=== PATIENT | male | born 1940 | race Caucasian/White ===

== ENCOUNTER 2018-08-25 13:57 | Emergency (ER) | payer MEDICARE, OTHER ==
[~2018-08-25] VITALS: Wt 71.0 kg
[~2018-08-25 13:57] MED LIST: AMLO2.5T78 PO; ATOR40TA68 PO; CEPH-443 PO; CLOP75TA27 PO; FURO40TA4 PO; GLIM1TAB2 PO; HYDR-843 PO; METO-319 PO; PLAVIX; SPIR100T4 PO; TAMS0.4C2 PO; VALS80TA2 PO; [UNRECOGNIZED DRUG - OTHER]
[2018-08-25 14:06] VITALS: Wt 71.0 kg
[2018-08-25] MEDS ORDERED: ONDANSETRON 4 MG INJ IV STA (14:41)
[2018-08-25] MEDS ORDERED: LIDOCAINE/MYLANTA 40 ML BTL PO STA (14:41)
[2018-08-25] MEDS ORDERED: BELLADONNA/PHENOBARBITAL TAB PO STA (14:41)
[2018-08-25] MEDS ORDERED: SOD CHLORIDE 0.9% 500 ML IV STA (14:41)
[2018-08-25] MEDS ORDERED: FAMOTIDINE 20 MG TAB PO STA (14:41)
--- NOTE | 2018-08-25 14:48 | ERD ---
ER Documentation Chief Complaint Chief Complaint vomiting for the past 24 hours. mild cough and congestion HPI This is a 78-year-old man with a history of CAD, [place], AICD placement brought in by family members for about 10 episodes of nausea and vomiting yesterday and continued vomiting this morning. He has a recent history of left pleural effusion and his PMD prescribed metolazone yesterday, which he used today although he is also uses furosemide daily. Patient denies abdominal pain or cramping but has a "fullness" sensation in his epigastrium, he denies diarrhea, no blood per rectum or melena, no calf or leg swelling, no chest pain or shortness of breath ROS All systems reviewed and are negative except as per history of present illness. Medications Home Meds Active Scripts Ondansetron Hcl* (Zofran*) 4 Mg Tablet, 4 MG PO Q8H PRN for NAUSEA AND/OR VOMITING, #30 TAB Prov:AARON COLEY MD 08/25/18 Reported Medications Metformin Hcl* (Metformin Hcl*) 500 Mg Tablet, 500 MG PO WITH BREAKFAST DINNE, #60 TAB PATIENT TAKE THIS MEDICATION NEEDED 08/25/18 Sitagliptin* (Januvia*) 100 Mg Tablet, 100 MG PO DAILY, #30 TAB PATIENT TAKE THIS MEDICATION NEEDED ONLY WHEN HIS BS WAS HIGH 08/25/18 Memantine* (Namenda*) 5 Mg Tablet, 5 MG PO BID, #60 TAB 08/25/18 Donepezil* (Donepezil*) 10 Mg Tablet, 10 MG PO DAILY, #30 TAB 08/25/18 Metolazone* (Metolazone*) 5 Mg Tablet, 5 MG PO DAILY, TAB FOR 7 DAYS,START DATE 08/25/18 08/25/18 Tamsulosin Hcl* (Flomax*) 0.4 Mg Cap.er.24h, 0.4 MG PO DAILY, CAP 08/25/18 Meclizine Hcl* (Meclizine Hcl*) 25 Mg Tablet, 25 MG PO BID PRN for DIZZINESS, TAB 08/25/18 Ranolazine* (Ranexa*) 500 Mg Tab.sr.12h, 500 MG PO Q12, TAB 08/25/18 Atorvastatin* (Atorvastatin*) 40 Mg Tablet, 40 MG PO QHS, #30 TAB 08/25/18 Ezetimibe* (Zetia*) 10 Mg Tablet, 10 MG PO DAILY, TAB 08/25/18 Metoprolol Succinate* (Toprol XL*) 25 Mg Tab.sr.24h, 25 MG PO BID, #30 TAB 08/25/18 Fenofibrate Nanocrystallized* (Fenofibrate*) 145 Mg Tablet, 145 MG PO DAILY, TAB 08/25/18 Prasugrel Hydrochloride* (Effient*) 10 Mg Tablet, 10 MG PO DAILY, TAB 08/25/18 Furosemide* (Furosemide*) 40 Mg Tablet, 40 MG PO DAILY, TAB 08/25/18 Aspirin* (Aspirin* EC) 81 Mg Tablet.dr, 81 MG PO DAILY, TAB 08/25/18 Discontinued Reported Medications Glimepiride* (Glimepiride*) 1 Mg Tablet, 1 MG PO WITH BREAKFAST, TAB 09/30/13 Furosemide* (Furosemide*) 40 Mg Tablet, 40 MG PO DAILY, TAB 09/30/13 Valsartan* (Diovan*) 80 Mg Tablet, 80 MG PO BID, TAB 09/30/13 Amlodipine Besylate* (Amlodipine Besylate*) 2.5 Mg Tablet, 5 MG PO DAILY, TAB 09/30/13 Spironolactone* (Spironolactone*) 100 Mg Tablet, 25 MG PO DAILY, TAB 09/30/13 Clopidogrel Bisulfate (Clopidogrel) 75 Mg Tablet, 75 MG PO DAILY, TAB 09/30/13 Metoprolol Succinate* (Toprol XL*) 50 Mg Tab.er.24h, 50 MG PO DAILY, TAB 09/30/13 [Maxium] No Conflict Check, DAILY 08/06/12 Tamsulosin Hcl* (Tamsulosin Hcl*) 0.4 Mg Cap.er.24h, 0.4 MG PO DAILY 08/06/12 Atorvastatin* (Atorvastatin*) 40 Mg Tablet, 20 MG PO DAILY 08/06/12 [Plavix] No Conflict Check 08/06/12 Discontinued Scripts Cephalexin* (Keflex*) 500 Mg Capsule, 500 MG PO QID for 5 Days, CAP Prov:DIAZ ROB NP 04/19/15 Hydroxyzine Hcl* (Hydroxyzine Hcl*) 25 Mg Tablet, 25 MG PO Q8H PRN for ITCHING, #30 TAB Prov:DIAZ ROB VASCULAR TECHNOLOGIST 04/19/15 Allergies Allergies: Coded Allergies: No Known Allergy (Unverified , 08/25/18) PMhx/Soc CAD, history of IN and stents, CABG, AICD, hypertension, BPH History of Surgery: Yes (HEART surgery) Anesthesia Reaction: No Hx Neurological Disorder: No Hx Respiratory Disorders: Yes Hx Cardiac Disorders: Yes (heart disease) Hx Miscellaneous Medical Probl: No Hx Alcohol Use: No Hx Substance Use: No Hx Tobacco Use: No Smoking Status: Never smoker Physical Exam Vitals Vital Signs Date Temp Pulse Resp B/P (MAP) Pulse Ox O2 O2 Flow FiO2 Time Delivery Rate 08/25/18 96.9 65 18 134/56 100 Room Air 16:55 (82) 08/25/18 98.0 61 20 149/82 94 14:06 (104) Physical Exam GENERAL: Well-developed, well-nourished, well-hydrated, in no apparent distress, looks nontoxic in appearance HEENT: Moist mucous membranes, pink conjunctiva, no cervical spine tenderness or step-off deformities, no goiter, no jaundice or icterus, extraocular movements intact without pain. No submandibular induration, and no pharyngeal erythema NEURO: Alert and oriented 3, cranial nerves II through XII intact bilaterally, pupils equal round reactive to light, no focal deficits or facial asymmetry, sensation intact distally Strength 5/5 in upper and lower extremities bilaterally CARDIAC: Regular rate and rhythm, no murmurs rubs or gallops LUNGS: Clear bilaterally no wheezing crackles or stridor ABDOMEN: Soft nontender, no guarding, no rigidity, no rebound, no psoas sign no obturator sign. Normoactive bowel sounds SKIN: Warm and dry to touch, no abrasions, contusions, or hematomas, no lacerations, no ecchymosis, no target lesions, and without ulcers EXTREMITIES: No clubbing cyanosis or edema, calves are bilaterally symmetrical, no Homans sign, no popliteal cord sign. Distal pulses equal and bilateral PSYCH: Normal affect without agitation or irritability Result Diagram: 08/25/18 1455 08/25/18 1455 Results 24 hrs Laboratory Tests Test 08/25/18 14:55 White Blood Count 11.3 10^3/ul Red Blood Count 5.22 10^6/ul Hemoglobin 16.0 g/dl Hematocrit 46.7 % Mean Corpuscular Volume 89.5 fl Mean Corpuscular Hemoglobin 30.7 pg Mean Corpuscular Hemoglobin Concent 34.3 g/dl Red Cell Distribution Width 13.0 % Platelet Count 265 10^3/UL Mean Platelet Volume 9.9 fl Immature Granulocytes % 0.400 % Neutrophils % 84.4 % Lymphocytes % 10.1 % Monocytes % 4.5 % Eosinophils % 0.3 % Basophils % 0.3 % Nucleated Red Blood Cells % 0.0 /100WBC Immature Granulocytes # 0.050 10^3/ul Neutrophils # 9.5 10^3/ul Lymphocytes # 1.1 10^3/ul Monocytes # 0.5 10^3/ul Eosinophils # 0.0 10^3/ul Basophils # 0.0 10^3/ul Nucleated Red Blood Cells # 0.0 10^3/ul Sodium Level 144 mmol/L Potassium Level 4.1 mmol/L Chloride Level 103 mmol/L Carbon Dioxide Level 27 mmol/L Anion Gap 14 Blood Urea Nitrogen 42 mg/dl Creatinine 2.45 mg/dl Est Glomerular Filtrat Rate mL/min mL/min Glucose Level 181 mg/dl Calcium Level 10.0 mg/dl Total Bilirubin 1.6 mg/dl Direct Bilirubin 0.00 mg/dl Indirect Bilirubin 1.6 mg/dl Aspartate Amino Transf (AST/SGOT) 45 IU/L Alanine Aminotransferase (ALT/SGPT) 38 IU/L Alkaline Phosphatase 73 IU/L Troponin I 0.015 ng/ml Total Protein 9.4 g/dl Albumin 5.0 g/dl Globulin 4.40 g/dl Albumin/Globulin Ratio 1.13 Lipase 113 U/L Current Medications Medications Dose Sig/Ag Start Time Status Last (Trade) Ordered Route PRN Stop Time Admin Dose Reason Admin Sodium 500 ml @ Q1H STAT 08/25/18 DC 08/25/18 Chloride 500 mls/hr IV 14:41 08/25/18 15:00 15:40 Ondansetron 4 mg ONCE STAT 08/25/18 DC 08/25/18 HCl (Zofran IV 14:41 08/25/18 15:00 Inj) 14:42 Famotidine 20 mg ONCE STAT 08/25/18 DC 08/25/18 (Pepcid) PO 14:41 08/25/18 15:00 14:42 40 ml ONCE STAT 08/25/18 DC 08/25/18 Miscellaneous PO 14:41 08/25/18 15:00 Medication 14:43 (Gi Cocktail (2)) Belladonna/ 2 tab ONCE STAT 08/25/18 DC 08/25/18 Phenobarbital PO 14:41 08/25/18 15:00 () 14:43 Procedures/MDM IV line was established patient was placed on pvc monitor rhythm strip revealed a sinus rhythm at about 60 bpm with upright P and T waves. Patient was afebrile EKG performed, read by me revealed a normal sinus rhythm at 60 bpm, left axis deviation, right bundle branch block QRS duration 152 ms, prolonged QT of 526 ms Administered 500 cc normal saline IV, Zofran 4 mg IV, GI cocktail p.o., famotidine 20 mg p.o. 1 view chest x-ray performed, read by me there is minimal congestion bila terally, no acute infiltrates, no pneumothorax, sternotomy wires, AICD in place in the left chest CBC was normal, electrolytes revealed mild renal insufficiency with elevated creatinine although his creatinine has had similar elevation in the past. Troponin was negative, liver function tests unremarkable Patient had no episodes of vomiting while here and felt much better after above therapy, given his recent increase in creatinine I recommended he discontinue metolazone and increase his daily exercise. I recommend that he continue furosemide daily and follow-up with PMD for repeat creatinine check Differential diagnoses considered, included but not limited to acute coronary syndrome, pulmonary embolism, aortic dissection, abdominal aortic aneurysm, sepsis, stroke, meningitis, encephalitis, pneumonia, appendicitis, cholecystitis, bowel obstruction, pyelonephritis, nephrolithiasis, cystitis, as well as metabolic, hematologic, and electrolyte abnormalities. As well as abscess, cellulitis, fractures, and dislocations. Patient feels much better at this time, and vital signs are normal, symptoms have improved. I did give strict instructions to return to the ED if symptoms continue or worsen, patient will otherwise follow-up with primary care physician. Patient understood instructions and agreed to plan. Disclaimer: Inadvertent spelling and grammatical errors are likely due to EHR/dictation software use and do not reflect on the overall quality of patient care. Also, please note that the electronic time recorded on this note does not necessarily reflect the actual time of the patient encounter. Departure Diagnosis: Primary Impression: Vomiting Vomiting type: unspecified Vomiting Intractability: non-intractable Nausea presence: with nausea Qualified Codes: R11.2 - Nausea with vomiting, unspecified Additional Impression: Acute dehydration Condition: Good AARON COLEY MD Aug 25, 2018 14:48
[2018-08-25] MEDS ORDERED: ASPI-817 PO (16:14)
[2018-08-25] MEDS ORDERED: FURO40TA4 PO (16:14)
[2018-08-25] MEDS ORDERED: FENO145T37 PO (16:15)
[2018-08-25] MEDS ORDERED: PRAS10TA6 PO (16:15)
[2018-08-25] MEDS ORDERED: EZET10TA31 PO (16:16)
[2018-08-25] MEDS ORDERED: ATOR40TA68 PO (16:16)
[2018-08-25] MEDS ORDERED: METO-335 PO (16:16)
[2018-08-25] MEDS ORDERED: TAMS-14 PO (16:17)
[2018-08-25] MEDS ORDERED: MECL-77 PO (16:17)
[2018-08-25] MEDS ORDERED: RANO500T2 PO (16:17)
[2018-08-25] MEDS ORDERED: METO5TAB65 PO (16:18)
[2018-08-25] MEDS ORDERED: DONE10TA7 PO (16:19)
[2018-08-25] MEDS ORDERED: MEMA5TAB PO (16:19)
[2018-08-25] MEDS ORDERED: SITA100T11 PO (16:21)
[2018-08-25] MEDS ORDERED: ONDA4TAB8 PO (16:22)
[2018-08-25] MEDS ORDERED: METF500T24 PO (16:40)
[2018-08-25 16:55] VITALS: BP 134/56; PULSE 65; RESP 18
== END 2018-08-25 16:56 | disposition home or self-care (01) ==
LOC: E/R 13:57
DX: E86.0 Dehydration (principal); I25.10 Atherosclerotic heart disease of native coronary artery without angina pectoris; I25.2 Old myocardial infarction; I10 Essential (primary) hypertension; Z79.01 Long term (current) use of anticoagulants; Z79.82 Long term (current) use of aspirin; Z79.84 Long term (current) use of oral hypoglycemic drugs; Z95.1 Presence of aortocoronary bypass graft; Z98.61 Coronary angioplasty status
CPT/HCPCS: 71045; 80053; 83690; 84484; 85025; 93005; J2405; J7040; 36415; 96374